=== PATIENT | male | born 1965 | race Caucasian/White ===

== ENCOUNTER 2021-02-23 11:16 | Day surgery (SDC) | payer OTHER ==
[~2021-02-23] VITALS: Ht 188 cm; Wt 114.0 kg
[~2021-02-23 11:16] MED LIST: HYDROmorphone 2 MG/ML VIAL IVP PRN; IV RINGERS,LACTATED 1000ML 1,000 ML IV SCH; MORPHINE SULFATE 2 MG/ML INJ. IVP PRN; PROCHLORPERAZINE 10 MG/2 ML VIAL. IVP PRN; fentaNYL PF VIAL 100 MCG/2 ML VIAL IVP PRN
[2021-02-23 12:00] VITALS: BP 149/81
[2021-02-23] MEDS ORDERED: BUPIVACAINE MPF 0.25% 30 ML VIAL. ONE (12:29)
[2021-02-23] MEDS ORDERED: DEXAMETHASONE SOD PHOS 4 MG/ML VIAL ONE (12:31)
[2021-02-23] MEDS ORDERED: PROPOFOL 10 MG/ML (20ML) VIAL. IV ONE (12:31)
[2021-02-23] MEDS ORDERED: ONDANSETRON PF 4 MG/2 ML VIAL. ONE (12:32)
[2021-02-23] MEDS ORDERED: fentaNYL PF VIAL 100 MCG/2 ML VIAL ONE (12:32)
[2021-02-23] MEDS ORDERED: KETOROLAC 30 MG/ML VIAL. ONE (12:32)
[2021-02-23] MEDS ORDERED: LIDOCAINE 1% PF 30 ML VIAL. ONE (12:44)
--- NOTE | 2021-02-23 14:03 | PDOC4 ---
OPERATIVE NOTE Date: Date: Feb 23, 2021 Pre-Op Diagnosis: Carpal tunnel syndrome right mass right thumb Post-Op Diagnosis: Same Procedure Performed: Carpal tunnel release right excision mass right thumb Surgeon: Rupesh Anesthesia Type: [place] block Blood Loss: 5 cc Specimans Obtained: Mass right thumb Findings: See dictation Complications: None BERE MEDRANO Jr. DO Feb 23, 2021 14:03
[2021-02-23 14:40] VITALS: BP 177/83
--- NOTE | 2021-02-23 14:48 | OP ---
DATE OF SURGERY: 02/23/2021 PREOPERATIVE DIAGNOSES: Carpal tunnel syndrome, right and mass, right thumb. POSTOPERATIVE DIAGNOSES: Carpal tunnel syndrome, right and mass, right thumb. PROCEDURE: Carpal tunnel release, right and right thumb mass removal. SURGEON: Oscar Goddard Jr., ANESTHESIA: [place] block. COMPLICATIONS: None. ESTIMATED BLOOD LOSS: 5 mL. 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 DESCRIPTION OF PROCEDURE: The patient was taken to the operative suite, given a [place] block anesthetic. Right upper extremity was then prepped and draped in a sterile fashion. Incision was made through skin and subcutaneous tissues down to the palmar fascia centered over the transverse carpal ligament in line with the radial border of the fourth digit. This was carefully taken down to the palmar fascia, which was incised in line with the skin incision. The transverse carpal ligament was then identified and released in its entirety. The underlying nerve was noted to be completely intact and released. This wound was then thoroughly irrigated and reapproximated in an interrupted fashion using 3-0 nylon. The incision was made then over the area of the thumb along the ulnar border. This was between the MCP and IP joints. This was carefully taken down to dissect very carefully. The mass was noted to be larger than it appeared during clinical examination with extension going on the palmar aspect of the thumb as well. This was removed in its entirety. This was approximately 3 cm x 1 cm and this was sent to pathology. This wound was then thoroughly irrigated. Superficial bleeding was coagulated using a Bovie knife and the wound was reapproximated in an interrupted fashion using 3-0 nylon. Sterile dressing was then applied and then tourniquet was deflated with good return of pulses and capillary refill. The patient was then taken from the operative bed to the postoperative bed, taken to the PACU in stable condition. PAT DR: Jimena TID: [id number]
== END 2021-02-23 15:05 | disposition home or self-care (01) ==
LOC: SURG 11:16
PROVIDERS: ATTEND Orthopaedic Surgery
DX: G56.01 Carpal tunnel syndrome, right upper limb (principal); R22.31 Localized swelling, mass and lump, right upper limb; D48.1 Neoplasm of uncertain behavior of connective and other soft tissue; Z79.899 Other long term (current) drug therapy; Z98.890 Other specified postprocedural states
CPT/HCPCS: 11423; 64721; 88307; A4930; J0690; J1100; J1885; J2405; J2704; J3010; J3490; A4657; A6452